=== PATIENT | female | born 1980 | race Caucasian/White ===

== ENCOUNTER 2017-06-04 09:40 | Outpatient (CLI) | payer BC ==
--- NOTE | 2017-06-04 11:22 | RAD ---
LUMBAR SPINE TWO VIEWS: History: Low back pain. FINDINGS: There are five lumbar type vertebrae. Pedicles are intact. Leftward convex curvature is apparent on the frontal view. Osteophytosis is present throughout the vertebral bodies and facets. Vertebral bod y heights and AP alignment are maintained. No acute fracture or dislocation are apparent. IMPRESSION: 1. Cervical spondylosis. No acute osseous abnormalities are demonstrated. POS: [facility]
== END 2017-06-04 09:41 | disposition home or self-care (01) ==
LOC: TBSIIMAG 09:40
PROVIDERS: ATTEND Neurological Surgery
DX: M54.5 Low back pain (principal); M47.892 Other spondylosis, cervical region
CPT/HCPCS: 72100

== ENCOUNTER 2018-03-28 23:01 | Emergency (ER) | payer BC | END 2018-03-28 23:49 | disposition left against medical advice (07) | LOC: ERS 23:01 | DX: Z53.21 Procedure and treatment not carried out due to patient leaving prior to being seen by health care provider (principal) ==

== ENCOUNTER 2018-06-13 11:07 | Outpatient (CLI) | payer BC ==
--- NOTE | 2018-06-13 12:36 | RAD ---
CERVICAL SPINE FIVE VIEWS: History: Neck pain, neck muscle spasm. Numbness in the left hand. FINDINGS/IMPRESSION: There is loss of the cervical lordosis. No fracture, subluxation, or bony destruction is seen. POS: [facility]
== END 2018-06-13 11:08 | disposition home or self-care (01) ==
LOC: BICRAD 11:07
PROVIDERS: ATTEND Internal Medicine
DX: M62.838 Other muscle spasm (principal)
CPT/HCPCS: 72050

== ENCOUNTER 2018-07-16 12:36 | Emergency (ER) | payer BC ==
[2018-07-16 13:28] LABS: #Basophils 0.1 thou/uL (0.0-0.2); #Eosinphils 0.1 thou/uL (0.0-0.7); #Lymphocytes 2.6 thou/uL (1.20-3.40); #Monocytes 0.7 thou/uL (0.11-0.59); #Neutrophils 4.1 thou/uL (1.40-6.50); %Eosinophils 1.5 % (0.0-10.0); %Lymphocytes 34.3 % (21.0-51.0); %Monocytes 8.6 % (0.0-10.0); %Neutrophils 54.5 % (42.0-75.0); Hemoglobin 12.2 g/dL (12.0-16.0); Mean Corpuscular HGB CONC 32.2 g/dL (32.0-36.0); Mean Corpuscular Hemoglobin 25.5 pg (27.0-31.0); Mean Corpuscular Volume 79.1 fL (78.0-98.0); Mean Platelet Volume 8.1 fL (7.4-10.4); Platelet Count 341 thou/uL (130-400); RBC Distribution Width 14.3 % (11.5-14.5); White Blood Cell (WBC) Count 7.5 thou/uL (4.8-10.8)
[2018-07-16 13:32] LABS: BHCG - Serum Negative (NEGATIVE); Pregs Control Background? CLEAR/WHITE (CLR/WHITE); Pregs Control Bar Appear? YES (CONTROL BAR)
[2018-07-16 13:35] LABS: PTT 32.7 SEC (22.9-36.1); Prothrombin Time 13.3 SEC (12.0-14.7)
[2018-07-16 13:49] LABS: CKMB 0.3 ng/mL (0-6.6); Troponin I Less than 0.010 ng/mL (< 0.028)
[2018-07-16 13:52] LABS: ALT (SGPT) 17 U/L (8-55); AST (SGOT) 13 U/L (5-34); Albumin 4.5 g/dL (3.5-5.0); Alkaline Phosphatase 68 U/L (40-150); Anion Gap 12 mmol/L (10-20); BUN (Urea Nitrogen) 9 mg/dL (7.0-18.7); Bilirubin, Total 0.9 mg/dL (0.2-1.2); CK (CPK) 50 U/L (29-168); Calc. Creatinine Clearance 0 mL/min (70-130); Calcium 9.7 mg/dL (7.8-10.44); Carbon Dioxide 25 mmol/L (22-29); Chloride 106 mmol/L (98-107); Estimated GFR-MDRD 76; Globulin 3.4 g/dL (2.4-3.5); Glucose 85 mg/dL (70-105); Potassium 3.4 mmol/L (3.5-5.1); Protein, Total 7.9 g/dL (6.0-8.3); Sodium 140 mmol/L (136-145)
--- NOTE | 2018-07-16 14:20 | CT ---
CT PULMONARY ANGIOGRAM WITH IV CONTRAST AND 3D POSTPROCESSING: Date: 07/16/18 HISTORY: 37-year-old female with chest pain. FINDINGS: No filling defects are seen in the contrast opacified pulmonary arterial vasculature to suggest pulmo nary embolism. The thoracic aorta is well opacified without aneurysm or dissection. No pneumothoraces , focal areas of consolidation, pulmonary nodules, or lung masses are seen. No pleural or pericardial effusions are identified. There are mild degenerative changes in the spine. Upper abdominal tomogram s demonstrate postop changes of gastric sleeve procedure and previous cholecystectomy. IMPRESSION: No CT evidence of pulmonary embolism. POS: [facility]
[2018-07-16] MEDS ORDERED: Iopamidol 370 76% 100 ML VIAL ONE (16:30)
== END 2018-07-16 14:00 | disposition home or self-care (01) ==
LOC: ERS 12:36
DX: R06.02 Shortness of breath (principal); M54.9 Dorsalgia, unspecified; I10 Essential (primary) hypertension; Z86.711 Personal history of pulmonary embolism; Z86.718 Personal history of other venous thrombosis and embolism; F41.9 Anxiety disorder, unspecified; Z79.899 Other long term (current) drug therapy
CPT/HCPCS: 71275; 80053; 82550; 82553; 84484; 84703; 85025; 85610; 85730; 93005; 94760

== ENCOUNTER 2018-07-25 07:29 | Outpatient (CLI) | payer BC ==
--- NOTE | 2018-07-25 09:33 | MRI ---
MR CERVICAL SPINE WITHOUT CONTRAST: INDICATION: History of neck pain radiating into the left shoulder and arm for 2 months. TECHNIQUE: Multiplanar, multisequence MR images were obtained of the cervical spine without IV contrast. FINDINGS: The examination is compared with cervical spine radiograph dated 06/13/2018. The visualized posterior fossa appears within normal limits. At C2-C3, there is no appreciable central canal or neural foraminal narrowing. At C3-4, there is no appreciable central canal or neural foraminal narrowing. At C4-5, there is no appreciable central canal or neural foraminal narrowing. At C5-6, there is mild broad-based bulge. There is no appreciable central canal or neural foraminal narrowing. At C6-7, there is a mild broad-based bulge without appreciable central canal or neural foraminal narr owing. At C7-T1, there is no appreciable central canal or neural foraminal narrowing. Bone marrow signal intensity appears within normal limits. IMPRESSION: No appreciable central canal or neural foraminal narrowing. Mild multilevel degenerative disk diseas e. POS: [facility]
== END 2018-07-25 07:30 | disposition home or self-care (01) ==
LOC: TBSIIMAG 07:29
PROVIDERS: ATTEND Internal Medicine
DX: M50.10 Cervical disc disorder with radiculopathy, unspecified cervical region (principal)
CPT/HCPCS: 72141

== ENCOUNTER 2018-10-22 11:13 | Outpatient (CLI) | payer BC ==
--- NOTE | 2018-10-22 11:55 | RAD ---
TWO VIEWS CHEST: Date: 10-22-18 Provided Clinical History: Cough. FINDINGS: No comparisons. Cardiac and mediastinal silhouette is within normal limits. No focal consolidation, pleural fluid or pneumothorax apparent. IMPRESSION: No evidence for an acute cardiopulmonary process. POS: [facility]
== END 2018-10-22 11:14 | disposition home or self-care (01) ==
LOC: BICRAD 11:13
PROVIDERS: ATTEND Physician Assistant
DX: R05 Cough (principal)
CPT/HCPCS: 71046; 85379

== ENCOUNTER 2022-12-20 08:40 | Emergency (ER) | payer OTHER, BC ==
[2022-12-20] MEDS ORDERED: Orphenadrine Citrate 60 MG/2 ML VIAL ONE (09:57)
[2022-12-20] MEDS ORDERED: Metoclopramide HCl 10 MG TAB ONE (09:57)
[2022-12-20] MEDS ORDERED: Ketorolac Tromethamine 30 MG/ML VIAL ONE (09:57)
== END 2022-12-20 10:25 | disposition home or self-care (01) ==
LOC: ERS 08:40
DX: S00.03XA Contusion of scalp, initial encounter (principal); S40.012A Contusion of left shoulder, initial encounter; V59.69XA Unspecified occupant of pick-up truck or van injured in collision with other motor vehicles in traffic accident, initial encounter
CPT/HCPCS: 96372; 99284; J1885; J2360